=== PATIENT | male | born 1995 | race African-American/Black ===

== ENCOUNTER 2016-06-16 13:33 | Emergency (ER) | payer SELFPAY ==
[~2016-06-16] VITALS: Ht 185.4 cm; Wt 77.0 kg
[~2016-06-16 13:33] MED LIST: ROBIDMS; VIBR100C PO; Z.0.NO CURRENT MEDS
[2016-06-16 13:36] VITALS: BP 125/60; PULSE 58; RESP 16; TEMP 97.9; O2SAT 98
--- NOTE | 2016-06-16 14:20 | PD ---
HPI Chief Complaint: Eye Problems/Injury Time Seen by Provider: 14:19 Travel History International Travel<30 days: No Contact w/Intl Traveler<30days: No Traveled to known affect area: No History of Present Illness HPI Patient is a 20-year-old male who presents emergency department for evaluation of 2 days of left eye redness. Patient states his eye feels gritty is any injury or retained foreign body. Patient states it was slightly red yesterday but was worse today. He denies any fever, chills, nausea, vomiting, headaches. He states that at times his vision is blurry, he does not use contact lenses or corrective lenses. Patient further denies any photophobia but states he has been having yellow crusting upon awakening in the morning. [facility] Past Medical History Medical History: Denies Significant Hx Family History Family History: Negative Social History Alcohol Use: No Tobacco Use: No Substance Use: No Allergies-Medications (Allergen,Severity, Reaction): Coded Allergies: No Known Allergies (Unverified , 06/16/16) Reported Meds & Prescriptions Reported Meds & Active Scripts Active No Active Prescriptions or Reported Medications Review of Systems Except as stated in HPI: all other systems reviewed are Neg Eyes: Positive: Blurred Vision, Drainage, Redness, Foreign Body Sensation Physical Exam Narrative GENERAL: Well-nourished, well-developed patient. SKIN: Warm and dry. HEAD: Normocephalic. EYES: No scleral icterus. Moderate injection in the left eye. Fluorescein eye exam did not reveal any dendritic lesions, ulcerations, or abrasions. Extraocular movements are intact. Pupils are equal, round, reactive. Visual acuity is 20/20 bilaterally. NECK: Supple, trachea midline. No JVD or lymphadenopathy. CARDIOVASCULAR: Regular rate and rhythm without murmurs, gallops, or rubs. RESPIRATORY: Breath sounds equal bilaterally. No accessory muscle use. GASTROINTESTINAL: Abdomen soft, non-tender, nondistended. MUSCULOSKELETAL: No cyanosis, or edema. BACK: Nontender without obvious deformity. No CVA tenderness. Data Data Last Documented VS Vital Signs Date Time Temp Pulse Resp B/P Pulse Ox O2 Delivery O2 Flow Rate FiO2 06/16/16 13:36 97.9 58 16 125/60 98 Room Air MDM Medical Decision Making Medical Screen Exam Complete: Yes Emergency Medical Condition: Yes Interpretation(s) Vital Signs Date Time Temp Pulse Resp B/P Pulse Ox O2 Delivery O2 Flow Rate FiO2 06/16/16 13:36 97.9 58 16 125/60 98 Room Air Differential Diagnosis Conjunctivitis versus iritis versus episcleritis versus foreign body Narrative Course Patient is a 20-year-old male who presents emergency for evaluation of eye redness, drainage, gritty feeling. Visual acuity is normal 20/20, fluorescein eye exam was negative, patient be provided with a prescription for antibiotics. He is encouraged to call compresses to affected area, avoid rubbing eyes. He is encouraged follow-up with ophthalmology or return to emergency department for any new or worsening symptoms. Patient verbalized understanding of these instructions. Patient is stable for discharge. Diagnosis Primary Impression: Conjunctivitis Qualified Code: H10.32 - Acute conjunctivitis of left eye, unspecified acute conjunctivitis type Referrals: [employer] Patient Instructions: Conjunctivitis (ED), General Instructions Additional Instructions: Follow-up with your primary doctor Return to emergency department for any new or worsening symptoms Follow-up with ophthalmology if needed Med/Other Pt SpecificInfo: Prescription(s) given Scripts Erythromycin Opth Oint 5 Mg/Gm Oint1 Applic LEFT EYE QID 7 Days Ref 0 Prov:Cristy Zhao 06/16/16 Disposition: 01 DISCHARGE HOME Condition: Stable Cristy Zhao Jun 16, 2016 14:20
[2016-06-16] MEDS ORDERED: ERYTOIN10 LEFT EYE ×2 (14:30→14:42)
== END 2016-06-16 14:54 | disposition home or self-care (01) ==
LOC: NEPB 13:33
DX: H10.32 Unspecified acute conjunctivitis, left eye (principal); H53.8 Other visual disturbances
CPT/HCPCS: 99282